=== PATIENT | male | born 2000 | race Caucasian/White ===

== ENCOUNTER 2022-10-03 23:58 | Inpatient (IN) | payer OTHER ==
[~2022-10-03] VITALS: Ht 193 cm; Wt 88.6 kg
[2022-10-04 01:28] LABS: BASOPHILS % (AUTO) 0.2 % (0.0-2.0); EOSINOPHILS % (AUTO) 0.1 % (1.0-6.0); HEMATOCRIT 48.2 % (41-53); HEMOGLOBIN 16.5 g/dL (13.5-17.5); LYMPHOCYTES # (AUTO) 1.2 K/uL (1.0-4.8); LYMPHOCYTES % (AUTO) 11.3 % (22.0-44.0); MEAN CORPUSCULAR HEMOGLOBIN 30.2 pg (26.0-34.0); MEAN CORPUSCULAR HGB CONC 34.2 G/dL (31.0-37.0); MEAN CORPUSCULAR VOLUME 88 fL (80-100); MONOCYTES # (AUTO) 0.8 K/uL (0.1-1.0); MONOCYTES % (AUTO) 7.1 % (2.0-9.0); NEUTROPHILS % (AUTO) 81.3 % (40.0-70.0); PLATELET COUNT (AUTO) 287 K/uL (150-450); RED BLOOD CELL COUNT(AUTO) 5.46 MIL/uL (4.50-5.90); RED CELL DISTRIBUTION WIDTH 12.9 % (11.5-14.5)
[2022-10-04 01:32] LABS: ANION GAP 10 mmol/L (8-16); CALCIUM, TOTAL 9.9 mg/dL (8.8-10.5); CARBON DIOXIDE 29 mmol/L (22-29); CHLORIDE 99 mmol/L (98-107); CREATININE 0.85 mg/dL (0.60-1.30); GLOMERULAR FILTR. RATE CALC > 60 mL/min (>60); GLUCOSE,RANDOM 110 mg/dL (70-110); POTASSIUM 3.8 mmol/L (3.5-5.1); SODIUM SERUM 138 mmol/L (136-145); UREA NITROGEN, BLOOD 9 mg/dL (7-18)
[2022-10-04 01:37] LABS: ALANINE AMINOTRANSFERASE 19 U/L (12-78); ALBUMIN 4.7 g/dL (3.4-5.0); ALKALINE PHOSPHATASE 80 U/L (46-116); ASPARTATE AMINOTRANSFERASE 18 U/L (15-37); BILIRUBIN,TOTAL 0.6 mg/dL (0.1-1.0); TOTAL PROTEIN, SERUM 8.2 g/dL (6.4-8.2)
[2022-10-04 01:52] LABS: SALICYLATE 0.6 mg/dL (2.8-20.0)
[2022-10-04 02:19] LABS: ACETAMINOPHEN < 2 mcg/mL (10-30)
[2022-10-04 03:07] LABS: COVID AG,FIA SOURCE NASOPHARYNGEAL
[2022-10-04 03:20] LABS: AMPHET/METH SCREEN,URINE NEGATIVE (NEGATIVE); BARBITURATE SCREEN, URINE NEGATIVE (NEGATIVE); BENZODIAZEPINES SCREEN,URINE NEGATIVE (NEGATIVE); CANNABINOID SCREEN,URINE NEGATIVE (NEGATIVE); COCAINE SCREEN,URINE NEGATIVE (NEGATIVE); METHADONE SCREEN, URINE NEGATIVE (NEGATIVE); OPIATE SCREEN,URINE NEGATIVE (NEGATIVE); PHENCYCLIDINE SCREEN,URINE NEGATIVE (NEGATIVE)
[2022-10-04] MEDS ORDERED: ACETAMINOPHEN 325 MG TABLET PO PRN (06:00)
[2022-10-04 06:49] VITALS: BP 127/78
[2022-10-04] MEDS: DOCUSATE SODIUM 100 MG CAPSULE PO SCH ×3 (07:56→20:57)
[2022-10-04] MEDS: HEPARIN SODIUM,PORCINE 5,000 UNITS/ML VIAL SQ SCH ×2 (07:57→16:18)
[2022-10-04 08:00] VITALS: BP 128/78
[2022-10-04 08:23] VITALS: BP 127/78
[2022-10-04 16:07] VITALS: BP 132/69
[2022-10-04] MEDS ORDERED: LORazepam 2 MG/ML VIAL IM PRN (16:15)
[2022-10-04 17:06] VITALS: BP 130/69
[2022-10-04] MEDS: RisperiDONE 3 MG TABLET PO SCH (20:57)
[2022-10-04 21:00] VITALS: BP 117/63
[2022-10-04] MEDS: HALOPERIDOL LACTATE 5 MG/ML VIAL IM PRN (21:05)
[2022-10-05 06:40] VITALS: BP 131/90
[2022-10-05] MEDS: LORazepam 2 MG/ML VIAL IM PRN ×2 (08:20→21:02)
[2022-10-05] MEDS: RisperiDONE 3 MG TABLET PO SCH ×2 (08:22→20:22)
[2022-10-05] MEDS: HEPARIN SODIUM,PORCINE 5,000 UNITS/ML VIAL SQ SCH ×4 (08:22→20:28)
[2022-10-05] MEDS: DOCUSATE SODIUM 100 MG CAPSULE PO SCH ×2 (08:28→20:22)
[2022-10-05 08:38] VITALS: BP 119/77
[2022-10-05 18:26] VITALS: BP 92/63
[2022-10-05 20:03] VITALS: BP 126/68
[2022-10-05 21:03] VITALS: BP 120/77
[2022-10-05] MEDS ORDERED: LORazepam 2 MG/ML VIAL IM ONE (23:15)
[2022-10-06 00:05] VITALS: BP 101/72
[2022-10-06 06:35] VITALS: BP 98/79
[2022-10-06] MEDS: RisperiDONE 3 MG TABLET PO SCH ×2 (08:13→20:04)
[2022-10-06] MEDS: DOCUSATE SODIUM 100 MG CAPSULE PO SCH ×2 (08:14→20:24)
[2022-10-06] MEDS: HEPARIN SODIUM,PORCINE 5,000 UNITS/ML VIAL SQ SCH ×2 (08:15→16:00)
[2022-10-06] MEDS: HALOPERIDOL LACTATE 5 MG/ML VIAL IM PRN (09:16)
[2022-10-06 20:17] VITALS: BP 127/76
[2022-10-06 22:57] VITALS: BP 131/82
[2022-10-06] MEDS ORDERED: DiphenhydrAMINE HCL 50 MG/ML VIAL IM ONE (23:15)
[2022-10-06] MEDS ORDERED: LORazepam 2 MG/ML VIAL IM ONE (23:30)
[2022-10-07] MEDS ORDERED: DiphenhydrAMINE HCL 50 MG/ML VIAL IM ONE
[2022-10-07] MEDS: HEPARIN SODIUM,PORCINE 5,000 UNITS/ML VIAL SQ SCH ×4 (08:00→23:43)
[2022-10-07] MEDS: DOCUSATE SODIUM 100 MG CAPSULE PO SCH ×2 (08:51→20:13)
[2022-10-07] MEDS: RisperiDONE 3 MG TABLET PO SCH ×3 (11:30→20:13)
[2022-10-07] MEDS: BENZTROPINE MESYLATE 1 MG TABLET PO SCH ×3 (11:30→20:13)
[2022-10-07 16:00] VITALS: BP 126/70
[2022-10-07 21:00] VITALS: BP 128/74
[2022-10-08 04:30] VITALS: BP 113/75
[2022-10-08] MEDS: HEPARIN SODIUM,PORCINE 5,000 UNITS/ML VIAL SQ SCH ×2 (08:00→16:30)
[2022-10-08 08:07] VITALS: BP 122/77
[2022-10-08] MEDS: BENZTROPINE MESYLATE 1 MG TABLET PO SCH ×2 (08:10→19:45)
[2022-10-08] MEDS: RisperiDONE 3 MG TABLET PO SCH ×2 (08:10→19:45)
[2022-10-08] MEDS: DOCUSATE SODIUM 100 MG CAPSULE PO SCH ×2 (08:11→19:45)
[2022-10-08 15:18] VITALS: BP 118/74
[2022-10-08 19:44] VITALS: BP 123/77
[2022-10-09 07:22] VITALS: BP 126/78
[2022-10-09] MEDS: HEPARIN SODIUM,PORCINE 5,000 UNITS/ML VIAL SQ SCH ×3 (09:07→16:09)
[2022-10-09] MEDS: BENZTROPINE MESYLATE 1 MG TABLET PO SCH ×2 (09:11→21:01)
[2022-10-09] MEDS: RisperiDONE 3 MG TABLET PO SCH ×2 (09:11→21:01)
[2022-10-09] MEDS: DOCUSATE SODIUM 100 MG CAPSULE PO SCH ×2 (09:11→21:01)
[2022-10-09 15:07] VITALS: BP 122/80
[2022-10-09 16:57] LABS: COVID AG,FIA SOURCE NASOPHARYNGEAL
[2022-10-09 19:21] VITALS: BP 124/82
== END 2022-10-09 21:18 | disposition psychiatric hospital, planned readmission (93) | DRG 817 ==
LOC: EMS 10-04 00:01 → 6S 10-04 05:00
PROVIDERS: ADMIT Internal Medicine; ATTEND Internal Medicine
DX: T60.0X2A Toxic effect of organophosphate and carbamate insecticides, intentional self-harm, initial encounter (principal); R45.851 Suicidal ideations; F19.921 Other psychoactive substance use, unspecified with intoxication with delirium; R65.10 Systemic inflammatory response syndrome (SIRS) of non-infectious origin without acute organ dysfunction; F20.9 Schizophrenia, unspecified; Z79.899 Other long term (current) drug therapy; Z20.822 Contact with and (suspected) exposure to COVID-19; R00.0 Tachycardia, unspecified; Y93.89 Activity, other specified; Y92.89 Other specified places as the place of occurrence of the external cause; Y99.8 Other external cause status
CPT/HCPCS: 71045; 80053; 80307; 80337; 84484; 85025; 93005; 99291; G0480; G0481; J1200; J1630; J1644; J2060; 36415-L1; 36415-TC

== ENCOUNTER 2022-10-09 14:17 | Inpatient (IN) | payer MEDICAID, OTHER ==
[~2022-10-09] VITALS: Ht 193 cm; Wt 96.3 kg
[2022-10-09 22:00] VITALS: BP 121/78
[2022-10-09] MEDS: HALOPERIDOL 5 MG TABLET PO PRN (22:36)
[2022-10-09] MEDS: ZOLPIDEM TARTRATE 10 MG TABLET PO PRN (22:36)
[2022-10-09] MEDS: LORazepam 2 MG TABLET PO PRN (23:33)
[2022-10-10] MEDS ORDERED: PETROLATUM,WHITE 28 GM JELLY TP PRN (05:30)
[2022-10-10] MEDS ORDERED: IBUPROFEN 600 MG TABLET PO PRN (05:30)
[2022-10-10] MEDS ORDERED: DOCUSATE SODIUM 100 MG CAPSULE PO PRN (05:30)
[2022-10-10] MEDS ORDERED: ONDANSETRON HCL 4 MG TABLET PO PRN (05:30)
[2022-10-10] MEDS ORDERED: LOPERAMIDE HCL 2 MG CAPSULE PO PRN (05:30)
[2022-10-10] MEDS ORDERED: CloNIDine HCL 0.1 MG TABLET PO PRN (05:30)
[2022-10-10] MEDS ORDERED: BENZOCAINE/MENTHOL LOZENGE PO PRN (05:30)
[2022-10-10] MEDS ORDERED: OMEPRAZOLE 20 MG CAPSULE PO PRN (05:30)
[2022-10-10] MEDS ORDERED: MAGNESIUM HYDROXIDE SUSPENSION 30 ML UDCUP PO PRN (05:30)
[2022-10-10] MEDS ORDERED: ALBUTEROL SULFATE HFA 90 MCG/PUFF 8 GM INHALER IH PRN (05:30)
[2022-10-10] MEDS ORDERED: BACITRACIN 28 GM OINTMENT TP PRN (05:30)
[2022-10-10] MEDS ORDERED: MAG HYDROX/AL HYDROX/SIMETH ES 30 ML SUSPENSION UDCUP PO PRN (05:30)
[2022-10-10 08:49] VITALS: BP 127/69
[2022-10-10] MEDS: LORazepam 2 MG TABLET PO PRN ×3 (08:57→21:46)
[2022-10-10] MEDS: HALOPERIDOL 5 MG TABLET PO PRN (12:12)
[2022-10-10 16:17] VITALS: BP 112/72
[2022-10-10] MEDS ORDERED: PALIPERIDONE 6 MG ER TABLET PO SCH (21:00)
[2022-10-10] MEDS: PALIPERIDONE 6 MG ER TABLET PO SCH (21:06)
[2022-10-10] MEDS: ZOLPIDEM TARTRATE 10 MG TABLET PO PRN (21:46)
[2022-10-11] MEDS: LORazepam 2 MG TABLET PO PRN ×3 (08:02→21:15)
[2022-10-11] MEDS: HALOPERIDOL 5 MG TABLET PO PRN ×2 (08:03→14:29)
[2022-10-11 08:09] VITALS: BP 139/97
[2022-10-11 16:28] VITALS: BP 137/91
[2022-10-11] MEDS: PALIPERIDONE 6 MG ER TABLET PO SCH (20:35)
[2022-10-11 20:40] VITALS: BP 130/84
[2022-10-11] MEDS: ZOLPIDEM TARTRATE 10 MG TABLET PO PRN (21:15)
[2022-10-12] MEDS: HALOPERIDOL 5 MG TABLET PO PRN (07:59)
[2022-10-12] MEDS: LORazepam 2 MG TABLET PO PRN (07:59)
[2022-10-12 09:29] VITALS: BP 119/79
[2022-10-12] MEDS ORDERED: HALOPERIDOL LACTATE 5 MG/ML VIAL IM ONE (13:15)
[2022-10-12] MEDS ORDERED: LORazepam 2 MG/ML VIAL IM ONE (13:15)
[2022-10-12] MEDS ORDERED: DiphenhydrAMINE HCL 50 MG/ML VIAL IM ONE (13:15)
[2022-10-12] MEDS ORDERED: LORazepam 2 MG/ML VIAL ONE (13:16)
[2022-10-12 17:14] VITALS: BP 130/81
[2022-10-12] MEDS: RisperiDONE 3 MG TABLET PO SCH (17:54)
[2022-10-12 20:29] VITALS: BP 131/86
[2022-10-12] MEDS: PALIPERIDONE 6 MG ER TABLET PO SCH (20:52)
[2022-10-13] MEDS: HALOPERIDOL 5 MG TABLET PO PRN ×3 (07:58→20:05)
[2022-10-13] MEDS: LORazepam 2 MG TABLET PO PRN ×3 (07:58→20:05)
[2022-10-13] MEDS: RisperiDONE 3 MG TABLET PO SCH ×2 (08:31→17:35)
[2022-10-13] MEDS ORDERED: DiphenhydrAMINE HCL 50 MG/ML VIAL ONE (09:29)
[2022-10-13] MEDS ORDERED: LORazepam 2 MG/ML VIAL ONE (09:29)
[2022-10-13] MEDS ORDERED: HALOPERIDOL LACTATE 5 MG/ML VIAL ONE (09:29)
[2022-10-13] MEDS ORDERED: HALOPERIDOL LACTATE 5 MG/ML VIAL IM ONE (09:30)
[2022-10-13] MEDS ORDERED: LORazepam 2 MG/ML VIAL IM ONE (09:30)
[2022-10-13] MEDS ORDERED: DiphenhydrAMINE HCL 50 MG/ML VIAL IM ONE (09:30)
[2022-10-13 16:11] VITALS: BP 132/78
[2022-10-13] MEDS: PALIPERIDONE 6 MG ER TABLET PO SCH (21:17)
[2022-10-13] MEDS: ZOLPIDEM TARTRATE 10 MG TABLET PO PRN (21:18)
[2022-10-13 21:23] VITALS: BP 116/65
[2022-10-14] MEDS: LORazepam 2 MG TABLET PO PRN ×2 (07:55→18:46)
[2022-10-14] MEDS: RisperiDONE 3 MG TABLET PO SCH ×2 (07:56→16:26)
[2022-10-14 09:28] VITALS: BP 116/75
[2022-10-14 12:28] VITALS: BP 111/65
[2022-10-14 17:01] VITALS: BP 137/91
[2022-10-14] MEDS: BENZOCAINE 10% 7 GM GEL TP PRN (19:12)
[2022-10-14] MEDS: HALOPERIDOL 5 MG TABLET PO PRN (19:35)
[2022-10-14] MEDS: PALIPERIDONE 6 MG ER TABLET PO SCH (20:26)
[2022-10-14] MEDS: ZOLPIDEM TARTRATE 10 MG TABLET PO PRN (22:51)
[2022-10-15 07:13] VITALS: BP 123/76
[2022-10-15] MEDS: HALOPERIDOL 5 MG TABLET PO PRN ×2 (07:14→19:23)
[2022-10-15] MEDS: LORazepam 2 MG TABLET PO PRN ×2 (07:14→19:22)
[2022-10-15 07:34] LABS: COVID AG,FIA SOURCE NASAL SWAB
[2022-10-15 08:01] VITALS: BP 121/71
[2022-10-15] MEDS: RisperiDONE 3 MG TABLET PO SCH ×2 (08:30→16:12)
[2022-10-15] MEDS ORDERED: DiphenhydrAMINE HCL 50 MG/ML VIAL ONE (11:57)
[2022-10-15] MEDS ORDERED: DiphenhydrAMINE HCL 50 MG/ML VIAL IM ONE (12:15)
[2022-10-15 16:01] VITALS: BP 108/58
[2022-10-15 20:20] VITALS: BP 110/78
[2022-10-15] MEDS: ZOLPIDEM TARTRATE 10 MG TABLET PO PRN (20:38)
[2022-10-16 08:23] VITALS: BP 131/72
[2022-10-16] MEDS: RisperiDONE 3 MG TABLET PO SCH ×2 (08:25→17:23)
[2022-10-16] MEDS: LORazepam 2 MG TABLET PO PRN ×2 (08:25→20:14)
[2022-10-16] MEDS: BENZOCAINE 10% 7 GM GEL TP PRN (18:17)
[2022-10-16] MEDS: HALOPERIDOL 5 MG TABLET PO PRN (20:14)
[2022-10-16 20:28] VITALS: BP 126/80
[2022-10-16] MEDS: ZOLPIDEM TARTRATE 10 MG TABLET PO PRN (21:06)
[2022-10-17] MEDS: RisperiDONE 3 MG TABLET PO SCH ×2 (08:06→16:23)
[2022-10-17] MEDS: LORazepam 2 MG TABLET PO PRN ×2 (08:06→22:07)
[2022-10-17 08:12] VITALS: BP 109/76
[2022-10-17 16:14] VITALS: BP 107/73
[2022-10-17 21:04] VITALS: BP 124/90
[2022-10-17] MEDS: ZOLPIDEM TARTRATE 10 MG TABLET PO PRN (22:07)
[2022-10-18] MEDS: LORazepam 2 MG TABLET PO PRN ×2 (07:57→21:03)
[2022-10-18] MEDS: RisperiDONE 3 MG TABLET PO SCH (07:57)
[2022-10-18 08:28] VITALS: BP 124/71
[2022-10-18 16:28] VITALS: BP 113/70
[2022-10-18] MEDS: RisperiDONE 4 MG TABLET PO SCH (16:36)
[2022-10-18 20:00] VITALS: BP 119/77
[2022-10-18] MEDS: ZOLPIDEM TARTRATE 10 MG TABLET PO PRN (21:03)
[2022-10-19] MEDS: LORazepam 2 MG TABLET PO PRN (06:40)
[2022-10-19] MEDS: HALOPERIDOL 5 MG TABLET PO PRN (06:41)
[2022-10-19] MEDS: RisperiDONE 4 MG TABLET PO SCH ×2 (10:31→16:47)
[2022-10-19 10:52] VITALS: BP 156/97
[2022-10-19 16:41] VITALS: BP 109/65
[2022-10-19 20:06] VITALS: BP 144/73
[2022-10-20] MEDS: LORazepam 2 MG TABLET PO PRN ×3 (00:42→19:33)
[2022-10-20] MEDS: ZOLPIDEM TARTRATE 10 MG TABLET PO PRN ×2 (00:42→21:20)
[2022-10-20] MEDS: RisperiDONE 4 MG TABLET PO SCH ×2 (08:19→16:31)
[2022-10-20] MEDS: BENZOCAINE 10% 7 GM GEL TP PRN ×3 (08:24→21:23)
[2022-10-20 09:55] VITALS: BP 123/70
[2022-10-20 16:06] VITALS: BP 109/70
[2022-10-21] MEDS: BENZOCAINE 10% 7 GM GEL TP PRN (07:08)
[2022-10-21 08:01] VITALS: BP 138/98
[2022-10-21] MEDS: RisperiDONE 4 MG TABLET PO SCH ×2 (08:05→16:23)
[2022-10-21] MEDS: HALOPERIDOL 5 MG TABLET PO PRN ×2 (08:33→19:24)
[2022-10-21] MEDS: LORazepam 2 MG TABLET PO PRN ×2 (08:33→19:24)
[2022-10-21 16:12] VITALS: BP 133/95
[2022-10-21] MEDS: BENZTROPINE MESYLATE 2 MG TABLET PO SCH (20:12)
[2022-10-21] MEDS: ZOLPIDEM TARTRATE 10 MG TABLET PO PRN (22:22)
[2022-10-22] MEDS: LORazepam 2 MG TABLET PO PRN ×2 (04:05→19:12)
[2022-10-22] MEDS: HALOPERIDOL 5 MG TABLET PO PRN ×2 (04:05→19:12)
[2022-10-22 08:55] VITALS: BP 104/59
[2022-10-22] MEDS: RisperiDONE 4 MG TABLET PO SCH ×2 (11:07→17:15)
[2022-10-22 18:35] LABS: COVID AG,FIA SOURCE NASAL SWAB
[2022-10-22] MEDS: BENZOCAINE 10% 7 GM GEL TP PRN (19:53)
[2022-10-22 20:05] VITALS: BP 117/75
[2022-10-22] MEDS: BENZTROPINE MESYLATE 2 MG TABLET PO SCH (20:28)
[2022-10-22] MEDS: ZOLPIDEM TARTRATE 10 MG TABLET PO PRN (21:40)
[2022-10-23] MEDS: HALOPERIDOL 5 MG TABLET PO PRN (03:12)
[2022-10-23] MEDS: LORazepam 2 MG TABLET PO PRN ×2 (03:12→16:37)
[2022-10-23 08:00] VITALS: BP 117/68
[2022-10-23] MEDS: RisperiDONE 4 MG TABLET PO SCH ×2 (08:35→17:08)
[2022-10-23] MEDS: NICOTINE 14 MG/24 HOUR PATCH TD PRN (14:29)
[2022-10-23 17:11] VITALS: BP 123/88
[2022-10-23 20:12] VITALS: BP 116/61
[2022-10-23] MEDS: BENZTROPINE MESYLATE 2 MG TABLET PO SCH (20:15)
[2022-10-23] MEDS: ZOLPIDEM TARTRATE 10 MG TABLET PO PRN (21:27)
[2022-10-24] MEDS: LORazepam 2 MG TABLET PO PRN ×4 (00:06→20:15)
[2022-10-24] MEDS: HALOPERIDOL 5 MG TABLET PO PRN ×4 (00:06→21:36)
[2022-10-24] MEDS: RisperiDONE 4 MG TABLET PO SCH ×2 (07:47→18:17)
[2022-10-24] MEDS: BENZOCAINE 10% 7 GM GEL TP PRN (07:48)
[2022-10-24 08:04] VITALS: BP 115/57
[2022-10-24] MEDS: NICOTINE 14 MG/24 HOUR PATCH TD PRN (11:26)
[2022-10-24 16:55] VITALS: BP 135/89
[2022-10-24] MEDS: BENZTROPINE MESYLATE 2 MG TABLET PO SCH (21:36)
[2022-10-24] MEDS: ZOLPIDEM TARTRATE 10 MG TABLET PO PRN (21:36)
[2022-10-25 08:13] VITALS: BP 104/62
[2022-10-25] MEDS: RisperiDONE 4 MG TABLET PO SCH ×2 (08:48→17:15)
[2022-10-25] MEDS: NICOTINE 14 MG/24 HOUR PATCH TD PRN ×2 (14:03→14:11)
[2022-10-25 16:47] VITALS: BP 111/77
[2022-10-25] MEDS: BENZOCAINE 10% 7 GM GEL TP PRN (18:03)
[2022-10-25] MEDS: LORazepam 2 MG TABLET PO PRN (20:01)
[2022-10-25] MEDS: HALOPERIDOL 5 MG TABLET PO PRN (20:01)
[2022-10-25 20:07] VITALS: BP 120/80
[2022-10-25] MEDS: BENZTROPINE MESYLATE 2 MG TABLET PO SCH (21:25)
[2022-10-25] MEDS: ZOLPIDEM TARTRATE 10 MG TABLET PO PRN (21:25)
[2022-10-26] MEDS: RisperiDONE 4 MG TABLET PO SCH ×2 (08:06→17:11)
[2022-10-26] MEDS: LORazepam 2 MG TABLET PO PRN ×2 (08:06→19:30)
[2022-10-26] MEDS: HALOPERIDOL 5 MG TABLET PO PRN ×2 (08:06→19:30)
[2022-10-26 08:26] VITALS: BP 121/74
[2022-10-26] MEDS: NICOTINE 14 MG/24 HOUR PATCH TD PRN (14:23)
[2022-10-26 16:01] VITALS: BP 101/69
[2022-10-26 20:15] VITALS: BP 126/82
[2022-10-26] MEDS: BENZTROPINE MESYLATE 2 MG TABLET PO SCH (20:33)
[2022-10-26] MEDS: ZOLPIDEM TARTRATE 10 MG TABLET PO PRN (22:13)
[2022-10-27] MEDS: LORazepam 2 MG TABLET PO PRN ×3 (03:36→19:45)
[2022-10-27] MEDS: HALOPERIDOL 5 MG TABLET PO PRN ×3 (03:36→19:45)
[2022-10-27] MEDS: RisperiDONE 4 MG TABLET PO SCH ×2 (08:07→16:29)
[2022-10-27] MEDS: BENZOCAINE 10% 7 GM GEL TP PRN (08:08)
[2022-10-27 08:12] VITALS: BP 125/86
[2022-10-27] MEDS: NICOTINE 14 MG/24 HOUR PATCH TD PRN (13:48)
[2022-10-27 16:02] VITALS: BP 119/73
[2022-10-27 16:18] VITALS: BP 119/73
[2022-10-27] MEDS: ZOLPIDEM TARTRATE 10 MG TABLET PO PRN (21:08)
[2022-10-27] MEDS: BENZTROPINE MESYLATE 2 MG TABLET PO SCH (21:08)
[2022-10-28 08:04] VITALS: BP 104/75
[2022-10-28] MEDS: RisperiDONE 4 MG TABLET PO SCH ×2 (09:08→18:34)
[2022-10-28 16:03] VITALS: BP 102/64
[2022-10-28 20:15] VITALS: BP 110/68
[2022-10-28] MEDS: BENZTROPINE MESYLATE 2 MG TABLET PO SCH (21:00)
[2022-10-29] MEDS: LORazepam 2 MG TABLET PO PRN ×3 (05:54→20:48)
[2022-10-29 07:34] LABS: COVID AG,FIA SOURCE NASAL SWAB
[2022-10-29 08:03] VITALS: BP 108/76
[2022-10-29] MEDS: RisperiDONE 4 MG TABLET PO SCH ×2 (09:00→17:30)
[2022-10-29] MEDS: HALOPERIDOL 5 MG TABLET PO PRN ×2 (12:47→20:49)
[2022-10-29 16:14] VITALS: BP 113/80
[2022-10-29] MEDS: BENZOCAINE 10% 7 GM GEL TP PRN (17:36)
[2022-10-29 20:11] VITALS: BP 119/76
[2022-10-29] MEDS: BENZTROPINE MESYLATE 2 MG TABLET PO SCH (20:44)
[2022-10-29] MEDS: ZOLPIDEM TARTRATE 10 MG TABLET PO PRN (20:47)
[2022-10-30 08:10] VITALS: BP 103/69
[2022-10-30] MEDS: RisperiDONE 4 MG TABLET PO SCH ×2 (08:10→16:08)
[2022-10-30] MEDS: LORazepam 2 MG TABLET PO PRN ×2 (08:10→16:08)
[2022-10-30 16:04] VITALS: BP 117/70
[2022-10-30] MEDS: BENZTROPINE MESYLATE 2 MG TABLET PO SCH (20:53)
[2022-10-30] MEDS: ZOLPIDEM TARTRATE 10 MG TABLET PO PRN (20:54)
[2022-10-31 04:47] VITALS: BP 114/74
[2022-10-31 08:05] VITALS: BP 128/71
[2022-10-31] MEDS: RisperiDONE 4 MG TABLET PO SCH ×2 (08:07→16:38)
[2022-10-31 16:03] VITALS: BP 120/85
[2022-10-31 20:34] VITALS: BP 127/75
[2022-10-31] MEDS: BENZTROPINE MESYLATE 2 MG TABLET PO SCH (20:51)
[2022-11-01 08:14] VITALS: BP 112/80
[2022-11-01] MEDS: RisperiDONE 4 MG TABLET PO SCH ×2 (08:31→16:26)
[2022-11-01 20:05] VITALS: BP 117/74
[2022-11-01] MEDS: ZOLPIDEM TARTRATE 10 MG TABLET PO PRN (21:19)
[2022-11-01] MEDS: BENZTROPINE MESYLATE 2 MG TABLET PO SCH (21:19)
[2022-11-01 21:22] VITALS: BP 120/80
[2022-11-01] MEDS: ACETAMINOPHEN 325 MG TABLET PO PRN (21:27)
[2022-11-02] MEDS: RisperiDONE 4 MG TABLET PO SCH ×2 (08:08→16:40)
[2022-11-02 08:11] VITALS: BP 115/70
[2022-11-02 09:48] VITALS: BP 123/78
[2022-11-02] MEDS: ACETAMINOPHEN 325 MG TABLET PO PRN (09:48)
[2022-11-02] MEDS ORDERED: HALOPERIDOL LACTATE 5 MG/ML VIAL IM ONE (12:15)
[2022-11-02] MEDS ORDERED: DiphenhydrAMINE HCL 50 MG/ML VIAL IM ONE (12:15)
[2022-11-02] MEDS ORDERED: LORazepam 2 MG/ML VIAL IM ONE (12:15)
[2022-11-02 16:22] VITALS: BP 130/72
[2022-11-02] MEDS: BENZTROPINE MESYLATE 2 MG TABLET PO SCH (21:05)
[2022-11-03] MEDS: LORazepam 2 MG TABLET PO PRN (03:48)
[2022-11-03] MEDS: HALOPERIDOL 5 MG TABLET PO PRN (03:48)
[2022-11-03] MEDS: RisperiDONE 4 MG TABLET PO SCH ×2 (08:08→16:25)
[2022-11-03 08:20] VITALS: BP 125/78
[2022-11-03 14:10] VITALS: BP 128/76
[2022-11-03 16:13] VITALS: BP 121/70
[2022-11-03 20:11] VITALS: BP 118/72
[2022-11-03] MEDS: DIVALPROEX SODIUM 500 MG DR TABLET PO SCH (20:27)
[2022-11-03] MEDS: BENZTROPINE MESYLATE 2 MG TABLET PO SCH (20:27)
[2022-11-04] MEDS: LORazepam 2 MG TABLET PO PRN ×2 (03:11→08:16)
[2022-11-04] MEDS: RisperiDONE 4 MG TABLET PO SCH ×2 (08:15→17:29)
[2022-11-04] MEDS: DIVALPROEX SODIUM 500 MG DR TABLET PO SCH ×2 (08:16→21:00)
[2022-11-04] MEDS: HALOPERIDOL 5 MG TABLET PO PRN (08:16)
[2022-11-04 08:19] VITALS: BP 115/68
[2022-11-04] MEDS: BENZTROPINE MESYLATE 2 MG TABLET PO SCH (20:37)
[2022-11-04 20:47] VITALS: BP 119/63
[2022-11-04 20:48] VITALS: BP 118/78
[2022-11-05 05:28] VITALS: BP 118/78
[2022-11-05] MEDS: RisperiDONE 4 MG TABLET PO SCH ×2 (07:58→16:48)
[2022-11-05] MEDS: DIVALPROEX SODIUM 500 MG DR TABLET PO SCH ×3 (07:59→21:00)
[2022-11-05 09:06] VITALS: BP 110/69
[2022-11-05 11:51] LABS: BASOPHILS % (AUTO) 0.8 % (0.0-2.0); EOSINOPHILS % (AUTO) 1.1 % (1.0-6.0); HEMATOCRIT 47.4 % (41-53); HEMOGLOBIN 15.7 g/dL (13.5-17.5); LYMPHOCYTES # (AUTO) 1.6 K/uL (1.0-4.8); MEAN CORPUSCULAR HEMOGLOBIN 29.9 pg (26.0-34.0); MEAN CORPUSCULAR HGB CONC 33.2 G/dL (31.0-37.0); MEAN CORPUSCULAR VOLUME 90 fL (80-100); MONOCYTES # (AUTO) 0.6 K/uL (0.1-1.0); MONOCYTES % (AUTO) 10.8 % (2.0-9.0); NEUTROPHILS % (AUTO) 56.3 % (40.0-70.0); PLATELET COUNT (AUTO) 267 K/uL (150-450); RED BLOOD CELL COUNT(AUTO) 5.27 MIL/uL (4.50-5.90); RED CELL DISTRIBUTION WIDTH 13.2 % (11.5-14.5)
[2022-11-05 17:11] VITALS: BP 150/77
[2022-11-05] MEDS: BENZTROPINE MESYLATE 2 MG TABLET PO SCH (20:58)
[2022-11-06] MEDS: ZOLPIDEM TARTRATE 10 MG TABLET PO PRN (00:36)
[2022-11-06] MEDS: HALOPERIDOL 5 MG TABLET PO PRN (08:06)
[2022-11-06] MEDS: RisperiDONE 4 MG TABLET PO SCH ×2 (08:06→17:07)
[2022-11-06] MEDS: LORazepam 2 MG TABLET PO PRN (08:09)
[2022-11-06 08:10] LABS: COVID AG,FIA SOURCE NASAL SWAB
[2022-11-06] MEDS: DIVALPROEX SODIUM 500 MG DR TABLET PO SCH ×2 (09:01→20:57)
[2022-11-06 10:13] VITALS: BP 143/83
[2022-11-06] MEDS ORDERED: CloZAPine 25 MG TABLET PO SCH (12:00)
[2022-11-06 17:23] VITALS: BP 142/69
[2022-11-06] MEDS: BENZTROPINE MESYLATE 2 MG TABLET PO SCH (20:57)
[2022-11-06 20:58] VITALS: BP 135/70
[2022-11-07] MEDS: DIVALPROEX SODIUM 500 MG DR TABLET PO SCH ×2 (08:05→20:34)
[2022-11-07] MEDS: LORazepam 2 MG TABLET PO PRN (08:05)
[2022-11-07] MEDS: RisperiDONE 4 MG TABLET PO SCH ×2 (08:05→16:03)
[2022-11-07] MEDS ORDERED: CloZAPine 25 MG TABLET PO SCH ×2 (09:00→21:00)
[2022-11-07 09:04] VITALS: BP 131/81
[2022-11-07 16:14] VITALS: BP 120/70
[2022-11-07] MEDS: BENZTROPINE MESYLATE 2 MG TABLET PO SCH (20:34)
[2022-11-08] MEDS: LORazepam 2 MG TABLET PO PRN (07:50)
[2022-11-08 08:28] VITALS: BP 120/75
[2022-11-08 08:30] VITALS: BP 120/75
[2022-11-08] MEDS ORDERED: CloZAPine 25 MG TABLET PO SCH ×2 (09:00→21:00)
[2022-11-08] MEDS: DIVALPROEX SODIUM 500 MG DR TABLET PO SCH ×2 (09:03→20:05)
[2022-11-08] MEDS: RisperiDONE 4 MG TABLET PO SCH ×2 (09:04→16:07)
[2022-11-08 16:09] VITALS: BP 112/63
[2022-11-08] MEDS: BENZTROPINE MESYLATE 2 MG TABLET PO SCH (20:05)
[2022-11-08 20:31] VITALS: BP 115/71
[2022-11-09] MEDS: RisperiDONE 4 MG TABLET PO SCH ×2 (07:47→17:13)
[2022-11-09] MEDS: CloZAPine 25 MG TABLET PO SCH ×2 (07:47→20:40)
[2022-11-09] MEDS: DIVALPROEX SODIUM 500 MG DR TABLET PO SCH ×2 (07:47→20:40)
[2022-11-09 08:39] VITALS: BP 115/79
[2022-11-09 16:20] VITALS: BP 138/81
[2022-11-09 20:36] VITALS: BP 126/76
[2022-11-09] MEDS: BENZTROPINE MESYLATE 2 MG TABLET PO SCH (20:40)
[2022-11-10] MEDS: RisperiDONE 4 MG TABLET PO SCH ×2 (08:05→16:17)
[2022-11-10] MEDS: CloZAPine 25 MG TABLET PO SCH ×2 (08:05→21:17)
[2022-11-10] MEDS: DIVALPROEX SODIUM 500 MG DR TABLET PO SCH ×2 (08:05→21:17)
[2022-11-10 10:02] VITALS: BP 127/97
[2022-11-10 17:08] VITALS: BP 135/91
[2022-11-10 20:34] VITALS: BP 128/68
[2022-11-10] MEDS: BENZTROPINE MESYLATE 2 MG TABLET PO SCH (21:17)
[2022-11-11 08:00] VITALS: BP 117/81
[2022-11-11] MEDS: RisperiDONE 4 MG TABLET PO SCH ×2 (08:44→16:30)
[2022-11-11] MEDS: DIVALPROEX SODIUM 500 MG DR TABLET PO SCH ×2 (08:44→20:13)
[2022-11-11] MEDS ORDERED: CloZAPine 25 MG TABLET PO SCH (09:00)
[2022-11-11 16:37] VITALS: BP 114/58
[2022-11-11] MEDS: BENZTROPINE MESYLATE 2 MG TABLET PO SCH (20:13)
[2022-11-11] MEDS ORDERED: CloZAPine 100 MG TABLET PO SCH (21:00)
[2022-11-12] MEDS: RisperiDONE 4 MG TABLET PO SCH ×2 (08:06→16:08)
[2022-11-12] MEDS: DIVALPROEX SODIUM 500 MG DR TABLET PO SCH ×2 (08:06→20:04)
[2022-11-12 08:36] VITALS: BP 128/84
[2022-11-12] MEDS ORDERED: CloZAPine 25 MG TABLET PO SCH (09:00)
[2022-11-12 11:31] LABS: BASOPHILS % (AUTO) 0.6 % (0.0-2.0); EOSINOPHILS % (AUTO) 0.8 % (1.0-6.0); HEMATOCRIT 48.3 % (41-53); HEMOGLOBIN 16.4 g/dL (13.5-17.5); LYMPHOCYTES # (AUTO) 1.5 K/uL (1.0-4.8); LYMPHOCYTES % (AUTO) 27.4 % (22.0-44.0); MEAN CORPUSCULAR HEMOGLOBIN 30.6 pg (26.0-34.0); MEAN CORPUSCULAR VOLUME 90 fL (80-100); MONOCYTES # (AUTO) 0.6 K/uL (0.1-1.0); MONOCYTES % (AUTO) 11.5 % (2.0-9.0); NEUTROPHILS # (AUTO) 3.3 K/uL (1.8-7.7); NEUTROPHILS % (AUTO) 59.7 % (40.0-70.0); PLATELET COUNT (AUTO) 256 K/uL (150-450); RED BLOOD CELL COUNT(AUTO) 5.37 MIL/uL (4.50-5.90); RED CELL DISTRIBUTION WIDTH 13.3 % (11.5-14.5)
[2022-11-12 16:03] VITALS: BP_SYST 119; BP_SYST 128; BP_DIAS 68; BP_DIAS 84
[2022-11-12] MEDS: BENZTROPINE MESYLATE 2 MG TABLET PO SCH (20:04)
[2022-11-12] MEDS ORDERED: CloZAPine 100 MG TABLET PO SCH (21:00)
[2022-11-12 21:04] VITALS: BP 127/79
[2022-11-13 07:34] LABS: COVID AG,FIA SOURCE NASAL SWAB
[2022-11-13] MEDS: RisperiDONE 4 MG TABLET PO SCH ×2 (08:12→16:21)
[2022-11-13] MEDS: DIVALPROEX SODIUM 500 MG DR TABLET PO SCH ×2 (08:12→21:05)
[2022-11-13] MEDS ORDERED: CloZAPine 25 MG TABLET PO SCH (09:00)
[2022-11-13 09:42] VITALS: BP 123/70
[2022-11-13 17:19] VITALS: BP 132/92
[2022-11-13] MEDS ORDERED: CloZAPine 100 MG TABLET PO SCH (21:00)
[2022-11-13] MEDS: BENZTROPINE MESYLATE 2 MG TABLET PO SCH (21:05)
[2022-11-13 21:11] VITALS: BP 112/64
[2022-11-14] MEDS: RisperiDONE 4 MG TABLET PO SCH ×2 (08:11→16:35)
[2022-11-14] MEDS: CloZAPine 100 MG TABLET PO SCH ×2 (08:11→20:52)
[2022-11-14] MEDS: DIVALPROEX SODIUM 500 MG DR TABLET PO SCH ×2 (08:11→20:52)
[2022-11-14 09:53] VITALS: BP 113/78
[2022-11-14] MEDS: BENZTROPINE MESYLATE 2 MG TABLET PO SCH (20:51)
[2022-11-15] MEDS: CloZAPine 100 MG TABLET PO SCH ×2 (08:11→20:58)
[2022-11-15] MEDS: DIVALPROEX SODIUM 500 MG DR TABLET PO SCH ×2 (08:11→20:58)
[2022-11-15] MEDS: RisperiDONE 4 MG TABLET PO SCH ×2 (08:12→16:28)
[2022-11-15 09:25] VITALS: BP 113/76
[2022-11-15] MEDS: BENZTROPINE MESYLATE 2 MG TABLET PO SCH (20:58)
[2022-11-15 21:32] VITALS: BP 110/67
[2022-11-16] MEDS: DIVALPROEX SODIUM 500 MG DR TABLET PO SCH ×2 (08:29→20:55)
[2022-11-16] MEDS: RisperiDONE 4 MG TABLET PO SCH ×2 (08:30→16:26)
[2022-11-16 08:56] VITALS: BP 109/57
[2022-11-16] MEDS ORDERED: CloZAPine 25 MG TABLET PO SCH (09:00)
[2022-11-16] MEDS: BENZTROPINE MESYLATE 2 MG TABLET PO SCH (20:55)
[2022-11-16] MEDS ORDERED: CloZAPine 100 MG TABLET PO SCH (21:00)
[2022-11-16 21:10] VITALS: BP 142/90
[2022-11-17] MEDS: DIVALPROEX SODIUM 500 MG DR TABLET PO SCH ×2 (08:06→20:22)
[2022-11-17] MEDS: RisperiDONE 4 MG TABLET PO SCH ×2 (08:06→16:42)
[2022-11-17] MEDS ORDERED: CloZAPine 25 MG TABLET PO SCH (09:00)
[2022-11-17 09:34] VITALS: BP 141/91
[2022-11-17] MEDS: BENZTROPINE MESYLATE 2 MG TABLET PO SCH (20:22)
[2022-11-17] MEDS ORDERED: CloZAPine 100 MG TABLET PO SCH (21:00)
[2022-11-17 21:54] VITALS: BP 138/77
[2022-11-18] MEDS: CloZAPine 100 MG TABLET PO SCH (08:23)
[2022-11-18] MEDS: DIVALPROEX SODIUM 500 MG DR TABLET PO SCH ×2 (08:23→20:21)
[2022-11-18] MEDS: RisperiDONE 4 MG TABLET PO SCH ×2 (08:23→16:29)
[2022-11-18 08:29] VITALS: BP 135/91
[2022-11-18] MEDS: BENZTROPINE MESYLATE 2 MG TABLET PO SCH (20:20)
[2022-11-18 20:58] VITALS: BP 140/60
[2022-11-18] MEDS ORDERED: CloZAPine 100 MG TABLET PO SCH (21:00)
[2022-11-19] MEDS: DIVALPROEX SODIUM 500 MG DR TABLET PO SCH (08:04)
[2022-11-19] MEDS: CloZAPine 100 MG TABLET PO SCH (08:04)
[2022-11-19] MEDS: RisperiDONE 4 MG TABLET PO SCH (08:04)
[2022-11-19 08:51] VITALS: BP 140/93
[2022-11-19 09:35] LABS: BASOPHILS % (AUTO) 1.1 % (0.0-2.0); HEMATOCRIT 46.8 % (41-53); HEMOGLOBIN 15.9 g/dL (13.5-17.5); LYMPHOCYTES # (AUTO) 1.8 K/uL (1.0-4.8); LYMPHOCYTES % (AUTO) 32.5 % (22.0-44.0); MEAN CORPUSCULAR HEMOGLOBIN 30.5 pg (26.0-34.0); MEAN CORPUSCULAR HGB CONC 33.9 G/dL (31.0-37.0); MEAN CORPUSCULAR VOLUME 90 fL (80-100); MONOCYTES # (AUTO) 0.7 K/uL (0.1-1.0); NEUTROPHILS # (AUTO) 2.9 K/uL (1.8-7.7); NEUTROPHILS % (AUTO) 51.4 % (40.0-70.0); PLATELET COUNT (AUTO) 261 K/uL (150-450); RED CELL DISTRIBUTION WIDTH 13.5 % (11.5-14.5)
[2022-11-19] MEDS ORDERED: CLOZ100T11 PO ×2 (10:00)
[2022-11-19] MEDS ORDERED: DIVA-112 PO (10:00)
[2022-11-19] MEDS ORDERED: BENZ2TAB76 PO (10:00)
== END 2022-11-19 13:45 | disposition home or self-care (01) | DRG 750 ==
LOC: 3EC 21:20 → 3EI 11-13 08:32
PROVIDERS: ADMIT Psychiatry & Neurology Psychiatry; ATTEND Psychiatry & Neurology Psychiatry
DX: F20.9 Schizophrenia, unspecified (principal); F15.10 Other stimulant abuse, uncomplicated; F41.9 Anxiety disorder, unspecified; G47.00 Insomnia, unspecified; K21.9 Gastro-esophageal reflux disease without esophagitis; K59.00 Constipation, unspecified; Z20.822 Contact with and (suspected) exposure to COVID-19
CPT/HCPCS: 80164; 85025; 86592; 87081; J1200; J1630; J2060

== ENCOUNTER 2023-11-05 22:41 | Inpatient (IN) | payer MEDICAID, OTHER ==
[~2023-11-05] VITALS: Ht 193 cm; Wt 117.5 kg
[~2023-11-05 22:41] MED LIST: BENZ2TAB71 PO; CLOZ100T11 PO; DIVA-112 PO
[2023-11-06 00:07] LABS: BASOPHILS % (AUTO) 0.9 % (0.0-2.0); EOSINOPHILS % (AUTO) 2.2 % (1.0-6.0); HEMATOCRIT 47.7 % (41-53); HEMOGLOBIN 16.2 g/dL (13.5-17.5); LYMPHOCYTES # (AUTO) 2.6 K/uL (1.0-4.8); LYMPHOCYTES % (AUTO) 39.6 % (22.0-44.0); MEAN CORPUSCULAR HEMOGLOBIN 28.9 pg (26.0-34.0); MEAN CORPUSCULAR HGB CONC 33.8 G/dL (31.0-37.0); MEAN CORPUSCULAR VOLUME 85 fL (80-100); MONOCYTES # (AUTO) 0.8 K/uL (0.1-1.0); MONOCYTES % (AUTO) 12.5 % (2.0-9.0); NEUTROPHILS # (AUTO) 2.9 K/uL (1.8-7.7); NEUTROPHILS % (AUTO) 44.8 % (40.0-70.0); PLATELET COUNT (AUTO) 296 K/uL (150-450); RED CELL DISTRIBUTION WIDTH 14.1 % (11.5-14.5); WHITE BLOOD COUNT (AUTO) 6.5 K/uL (4.5-11.0)
[2023-11-06 00:15] LABS: ANION GAP 8 mmol/L (8-16); CALCIUM, TOTAL 8.7 mg/dL (8.8-10.5); CARBON DIOXIDE 28 mmol/L (22-29); CHLORIDE 103 mmol/L (98-107); CREATININE 1.22 mg/dL (0.60-1.30); GLOMERULAR FILTR. RATE CALC > 60 mL/min (>60); GLUCOSE,RANDOM 112 mg/dL (70-110); POTASSIUM 3.6 mmol/L (3.5-5.1); SODIUM SERUM 139 mmol/L (136-145); UREA NITROGEN, BLOOD 16 mg/dL (7-18)
[2023-11-06 00:15] LABS: ALCOHOL, URINE DRUG SCREEN NEGATIVE (NEGATIVE); AMPHET/METH SCREEN,URINE NEGATIVE (NEGATIVE); BARBITURATE SCREEN, URINE NEGATIVE (NEGATIVE); BENZODIAZEPINES SCREEN,URINE NEGATIVE (NEGATIVE); CANNABINOID SCREEN,URINE NEGATIVE (NEGATIVE); COCAINE SCREEN,URINE NEGATIVE (NEGATIVE); METHADONE SCREEN, URINE NEGATIVE (NEGATIVE); OPIATE SCREEN,URINE NEGATIVE (NEGATIVE); PHENCYCLIDINE SCREEN,URINE NEGATIVE (NEGATIVE)
[2023-11-06 00:21] LABS: ALANINE AMINOTRANSFERASE 67 U/L (12-78); ALBUMIN 3.7 g/dL (3.4-5.0); ALKALINE PHOSPHATASE 110 U/L (46-116); ASPARTATE AMINOTRANSFERASE 23 U/L (15-37); BILIRUBIN,TOTAL 0.2 mg/dL (0.1-1.0); TOTAL PROTEIN, SERUM 7.4 g/dL (6.4-8.2)
[2023-11-06 00:23] LABS: ALCOHOL, BLOOD (SERUM) < 3 mg/dL (0-10)
[2023-11-06 00:27] LABS: COVID AG,FIA SOURCE NASAL SWAB
[2023-11-06 00:59] LABS: SARS-COV2 (COVID) ANTIGEN,FIA Negative (Negative)
[2023-11-06] MEDS: MELATONIN 5 MG TABLET PO ONE (01:05)
[2023-11-06] MEDS ORDERED: HALOPERIDOL 5 MG TABLET PO PRN (01:30)
[2023-11-06 01:52] LABS: APPEARANCE,URINE CLEAR (CLEAR); BILIRUBIN,URINE NEGATIVE (NEGATIVE); COLOR,URINE LIGHT YELLOW (YELLOW); GLUCOSE, URINE (UA) NEGATIVE (NEGATIVE); KETONES,URINE NEGATIVE (NEGATIVE); LEUKOCYTE ESTERASE ,URINE NEGATIVE (NEGATIVE); NITRATE,URINE NEGATIVE (NEGATIVE); OCCULT BLOOD,URINE NEGATIVE (NEGATIVE); PROTEIN,URINE TRACE mg/dL (NEGATIVE); SPECIFIC GRAVITIY, URINE 1.027 (1.003-1.030); UROBILINOGEN,URINE <=1.0 mg/dL (<=1.0)
[2023-11-06 03:37] VITALS: BP 126/73; PULSE 104; RESP 18; TEMP 97.8; O2SAT 97
[2023-11-06] MEDS ORDERED: PETROLATUM,WHITE 28 GM JELLY TP PRN (06:30)
[2023-11-06] MEDS ORDERED: MAGNESIUM HYDROXIDE SUSPENSION 30 ML UDCUP PO PRN (06:30)
[2023-11-06] MEDS ORDERED: GuaiFENesin/D-METHORPHAN [SUGAR-FREE] 200-20MG/10 ML SYRUP UDCUP PO PRN (06:30)
[2023-11-06] MEDS ORDERED: ONDANSETRON HCL 4 MG TABLET PO PRN (06:30)
[2023-11-06] MEDS ORDERED: LOPERAMIDE HCL 2 MG CAPSULE PO PRN (06:30)
[2023-11-06] MEDS ORDERED: IBUPROFEN 400 MG TABLET PO PRN (06:30)
[2023-11-06] MEDS ORDERED: DOCUSATE SODIUM 100 MG CAPSULE PO PRN (06:30)
[2023-11-06] MEDS ORDERED: ACETAMINOPHEN 325 MG TABLET PO PRN (06:30)
[2023-11-06] MEDS ORDERED: CloNIDine HCL 0.1 MG TABLET PO PRN (06:30)
[2023-11-06] MEDS ORDERED: NICOTINE 14 MG/24 HOUR PATCH TD PRN (06:30)
[2023-11-06] MEDS ORDERED: ALBUTEROL SULFATE HFA 90 MCG/PUFF 8 GM INHALER IH PRN (06:30)
[2023-11-06 13:52] VITALS: BP 104/80; PULSE 99; RESP 18; TEMP 97.8; O2SAT 96
[2023-11-06] MEDS: BENZTROPINE MESYLATE 2 MG TABLET PO SCH (20:25)
[2023-11-06] MEDS: ZOLPIDEM TARTRATE 10 MG TABLET PO PRN (20:25)
[2023-11-06] MEDS: CloZAPine 100 MG TABLET PO SCH (20:25)
[2023-11-06] MEDS: DIVALPROEX SODIUM 500 MG DR TABLET PO SCH (21:00)
[2023-11-06 21:14] VITALS: BP 122/52; PULSE 124; RESP 19; TEMP 97.4; O2SAT 96
[2023-11-07] MEDS: MetFORMIN HCL 500 MG ER TABLET PO SCH (07:06)
[2023-11-07 08:58] LABS: HEMOGLOBIN A1C 5.3 % (3.8-5.6)
[2023-11-07 09:20] LABS: CHOL/HDL RATIO 4.4 (4.2-7.3); THYROID STIMULATING HORMONE 1.54 uIU/mL (0.36-3.74)
[2023-11-07] MEDS: LORazepam 2 MG TABLET PO PRN (10:19)
[2023-11-07 16:33] VITALS: BP 124/58; PULSE 88; RESP 18; TEMP 98.2; O2SAT 98
[2023-11-07 20:46] VITALS: BP 109/58; PULSE 120; TEMP 98.1; O2SAT 96
[2023-11-07] MEDS: MAG HYDROX/ALUMINUM HYD/SIMETH ES 30 ML SUSPENSION UDCUP PO PRN (22:03)
[2023-11-08 09:26] VITALS: BP 144/69; RESP 18; TEMP 97.8; O2SAT 97
[2023-11-08] MEDS ORDERED: BENZ2TAB71 PO (10:49)
[2023-11-08] MEDS ORDERED: CLOZ100T61 PO (10:49)
[2023-11-08] MEDS ORDERED: DIVA-112 PO (10:49)
== END 2023-11-08 17:05 | disposition home or self-care (01) | DRG 750 ==
LOC: EMS 23:02 → B2S 11-06 01:19
PROVIDERS: ADMIT Psychiatry & Neurology Child & Adolescent Psychiatry; ATTEND Psychiatry & Neurology Child & Adolescent Psychiatry
DX: F20.0 Paranoid schizophrenia (principal); F32.A Depression, unspecified; Z20.822 Contact with and (suspected) exposure to COVID-19; F60.0 Paranoid personality disorder; R73.9 Hyperglycemia, unspecified
CPT/HCPCS: 80053; 80061; 80307; 81003; 83036; 84443; 85025; 99285; G0480; Q9967; 36415-L1; 36415-TC; Z7502; Z7610